=== PATIENT | male | born 1985 | race Caucasian/White ===

== ENCOUNTER 2017-01-23 19:27 | Emergency (ER) | payer SELFPAY ==
[~2017-01-23] VITALS: Ht 170.2 cm; Wt 74.5 kg
[2017-01-23 19:39] VITALS: BP 150/93; PULSE 105; RESP 22; TEMP 99.7; O2SAT 100
[2017-01-23] MEDS ORDERED: LORazepam 2 MG/ML VIAL IV ONE (19:45)
--- NOTE | 2017-01-23 19:56 | PD ---
HPI Chief Complaint: Psychiatric Symptoms Time Seen by Provider: 19:45 Travel History International Travel<30 days: No Contact w/Intl Traveler<30days: No Traveled to known affect area: No History of Present Illness HPI 31-year-old male came to the emergency room with history of using an unknown substance but he thinks it was PCP. When fire department arrived they noticed that he was just staring and nonverbal and had resting nystagmus. His girlfriend was there with him as well and she is brought to the emergency room for the exact same thing. Patient was Landeros acted since he was deemed to be unsafe to himself and others. Upon arrival patient appeared confused eyes staring wide open and asking me if he was going to and that what was going on with him. No history of head injury or any signs of assault. Vital signs were relatively stable except for slight tachycardia. Patient appears to be older than his stated age. He is not a reliable historian at this point. [facility] Past Medical History Narrative Medical List of his past medical, surgical, social and family history is reviewed from the nursing note. Medical History: Denies Significant Hx Diminished Hearing: No Tetanus Vaccination: < 5 Years Influenza Vaccination: No Social History Alcohol Use: Yes Tobacco Use: Yes Substance Use: No Allergies-Medications (Allergen,Severity, Reaction): Coded Allergies: No Known Allergies (Unverified , 05/19/16) Comments No known drug allergies. Reported Meds & Prescriptions Reported Meds & Active Scripts Active No Active Prescriptions or Reported Medications Narrative Medication List of his home medications reviewed from the nursing note. Review of Systems Except as stated in HPI: all other systems reviewed are Neg Physical Exam Narrative GENERAL: Awake, alert, anxious, moderate distress SKIN: Focused skin assessment warm/dry. HEAD: Atraumatic. Normocephalic. EYES: Pupils equal and round. No scleral icterus. No injection or drainage. Non -extinguishable Nystagmus ENT: No nasal bleeding or discharge. Mucous membranes pink and moist. NECK: Trachea midline. No JVD. CARDIOVASCULAR: Regular rate and rhythm. No murmur appreciated. RESPIRATORY: No accessory muscle use. Clear to auscultation. Breath sounds equal bilaterally. GASTROINTESTINAL: Abdomen soft, non-tender, nondistended. Hepatic and splenic margins not palpable. MUSCULOSKELETAL: No obvious deformities. No clubbing. No cyanosis. No edema. NEUROLOGICAL: Awake and confused but answering questions. No obvious cranial nerve deficits. Motor grossly within normal limits. Normal speech. PSYCHIATRIC: Appropriate mood and affect; insight and judgment normal. Data Data Last Documented VS Vital Signs Date Time Temp Pulse Resp B/P Pulse Ox O2 Delivery O2 Flow Rate FiO2 01/24/17 06:00 96.0 79 18 114/80 100 Orders Complete Blood Count With Diff (01/23/17 19:45) Comprehensive Metabolic Panel (01/23/17 19:45) Psych Screen (01/23/17 19:45) Lorazepam Inj (Ativan Inj) (01/23/17 19:45) Drug Screen, Random Urine (01/23/17 19:45) Alcohol (Ethanol) (01/23/17 19:45) Sodium Chlor 0.9% 1000 Ml Inj (Ns 1000 M (01/23/17 20:15) Potassium Chloride Eff (K-Lyte Cl Eff) (01/23/17 21:00) Electrocardiogram (01/23/17 19:47) Diet Regular Basic (01/24/17 Breakfast) Labs Laboratory Tests Test 01/23/17 01/23/17 20:00 20:10 White Blood Count 5.9 TH/MM3 Red Blood Count 5.23 MIL/MM3 Hemoglobin 15.6 GM/DL Hematocrit 45.9 % Mean Corpuscular Volume 87.6 FL Mean Corpuscular Hemoglobin 29.8 PG Mean Corpuscular Hemoglobin 34.0 % Concent Red Cell Distribution Width 12.7 % Platelet Count 250 TH/MM3 Mean Platelet Volume 8.2 FL Neutrophils (%) (Auto) 64.3 % Lymphocytes (%) (Auto) 22.3 % Monocytes (%) (Auto) 8.8 % Eosinophils (%) (Auto) 3.3 % Basophils (%) (Auto) 1.3 % Neutrophils # (Auto) 3.8 TH/MM3 Lymphocytes # (Auto) 1.3 TH/MM3 Monocytes # (Auto) 0.5 TH/MM3 Eosinophils # (Auto) 0.2 TH/MM3 Basophils # (Auto) 0.1 TH/MM3 CBC Comment DIFF FINAL Differential Comment Sodium Level 140 MEQ/L Potassium Level 3.3 MEQ/L Chloride Level 104 MEQ/L Carbon Dioxide Level 26.3 MEQ/L Anion Gap 10 MEQ/L Blood Urea Nitrogen 18 MG/DL Creatinine 1.08 MG/DL Estimat Glomerular Filtration 81 ML/MIN Rate Random Glucose 101 MG/DL Calcium Level 9.1 MG/DL Total Bilirubin 0.7 MG/DL Aspartate Amino Transf 22 U/L (AST/SGOT) Alanine Aminotransferase 27 U/L (ALT/SGPT) Alkaline Phosphatase 69 U/L Total Protein 7.6 GM/DL Albumin 4.4 GM/DL Ethyl Alcohol Level LESS THAN 3 MG/DL Urine Opiates Screen NEG Urine Barbiturates Screen NEG Urine Amphetamines Screen NEG Urine Benzodiazepines Screen NEG Urine Cocaine Screen NEG Urine Cannabinoids Screen POS MDM Medical Decision Making Medical Screen Exam Complete: Yes Emergency Medical Condition: Yes Medical Record Reviewed: Yes Interpretation(s) Twelve-lead EKG was reviewed by me. Normal sinus rhythm, normal axis, nonspecific ST-T wave changes. Heart rate of 99 bpm. Differential Diagnosis Ketamine overdose, PCP overdose, unknown substance abuse Narrative Course 8:01 PM patient was given 1 mg of Ativan. 1 L of IV fluid bolus. Awaiting for the blood test result and urine drug screen. In my opinion patient probably took ketamine since the presentation and the description fits ketamine use. Either way patient will be here till he is seen by psych. Procedures EKG Prior to Arrival: No Scripts No Active Prescriptions or Reported Meds Chester Toledo MD Jan 23, 2017 19:56
[2017-01-23] MEDS ORDERED: SODIUM CHLOR 0.9% 1000 ML INJ 1,000 ML IV ONE (20:15)
[2017-01-23 20:22] VITALS: TEMP 99.5
[2017-01-23 20:25] LABS: AUTOMATED NEUTROPHIL # 3.8 TH/MM3 (1.8-7.7); BASOPHIL # 0.1 TH/MM3 (0-0.2); BASOPHIL % 1.3 % (0.0-2.0); EOSINOPHIL # 0.2 TH/MM3 (0-0.4); EOSINOPHIL % 3.3 % (0.0-4.0); HEMATOCRIT 45.9 % (39.0-51.0); HEMO FLAGS DIFF FINAL; LYMPH % 22.3 % (9.0-44.0); LYMPHOCYTE # 1.3 TH/MM3 (1.0-4.8); MEAN CELL VOLUME 87.6 FL (80.0-100.0); MEAN CORPUSCULAR HEMOGLOBIN 29.8 PG (27.0-34.0); MONO % 8.8 % (0.0-8.0); NEUT % 64.3 % (16.0-70.0); PLATELET COUNT 250 TH/MM3 (150-450); RED BLOOD COUNT 5.23 MIL/MM3 (4.50-5.90); RED CELL DISTRIBUTION WIDTH 12.7 % (11.6-17.2); WHITE BLOOD COUNT 5.9 TH/MM3 (4.0-11.0)
[2017-01-23 20:42] LABS: AMPHETAMINE, URINE NEG (NEG); BARBITURATES, URINE NEG (NEG); COCAINE, URINE NEG (NEG)
[2017-01-23 20:49] LABS: ANION GAP 10 MEQ/L (5-15); AST (GOT) 22 U/L (15-37); BICARBONATE 26.3 MEQ/L (21.0-32.0); BLOOD UREA NITROGEN 18 MG/DL (7-18); CHLORIDE 104 MEQ/L (98-107); GLOMERULAR FILTRATION RATE 81 ML/MIN (>89); POTASSIUM 3.3 MEQ/L (3.5-5.1); SODIUM (NA) 140 MEQ/L (136-145)
[2017-01-23 20:50] LABS: ALT (GPT) 27 U/L (12-78)
[2017-01-23 20:53] LABS: ALKALINE PHOSPHATASE 69 U/L (45-117); TOTAL BILIRUBIN ADULT 0.7 MG/DL (0.2-1.0)
[2017-01-23] MEDS ORDERED: POTASSIUM CHLORIDE 25 MEQ EFFERVESCENT TAB PO ONE (21:00)
[2017-01-23 21:26] VITALS: BP 156/93; PULSE 92; RESP 20; TEMP 99.4; O2SAT 97
[2017-01-24 02:16] VITALS: BP 129/76; PULSE 78; RESP 17; TEMP 98.5; O2SAT 99
[2017-01-24 06:00] VITALS: BP 114/80; PULSE 79; RESP 18; TEMP 96; O2SAT 100
--- NOTE | 2017-01-24 10:01 | PD ---
History of Present Illness Chief Complaint: Psychiatric Symptoms Time Seen by Provider: 09:55 Travel History International Travel<30 Days: No Contact w/Intl Traveler<30days: No Known affected area: No Legal Status Legal Status: Landeros Act Landeros Act Signed By: Niraj Iqbal History of Present Illness: History of Present Illness HPI 31-year-old male with history of substance abuse who presents to ED under a BA initiated by MONIQUE after 911 was called by his girlfriend. The BA reads " Blood pressure high. Unable to answer questions. possible danger to himself and others. Took an unknown narcotic possibly PCP. Unable to make complete full sentences and full paranoia. " Upon arrival patient appeared confused eyes staring wide open and asking if he was going to and that what was going on with him. Patient was monitored in J pod with no behavioral concerns. EMR is reviewed. no previous contact with [facility] psychiatry. Toxicology is positive for cannabinoids. The patient this morning is awake, alert and oriented. he is cooperative. Speech is clear and logical and his thoughts are organized. no indication that he is experiencing any psychosis and no paranoia. the patient at this time is clear form substance. He states " i possibly overdosed on PCP. I smoked some PCP because I have smoked in the past and it helps my knee pain. He does not present any acute psychiatric symptoms and no suicidality. PFSH Past Medical History Medical History: Denies Significant Hx Diminished Hearing: No Tetanus Vaccination: < 5 Years Influenza Vaccination: No Psychiatric History Psychiatric History Hx Psychiatric Treatment: NONE History of Inpatient Treatment: No Guns or firearms in home: No Social History Single male. Lives with his girlfriend. Hx Alcohol Use: Yes Hx Tobacco Use: Yes Hx Substance Use: Yes (PCP) Substance Use Type: Bandar Dust-PCP Hx of Substance Use Treatment: No Family Psychiatric History none Allergies-Medications (Allergen,Severity, Reaction): Coded Allergies: No Known Allergies (Unverified , 05/19/16) Reported Meds & Prescriptions Reported Meds & Active Scripts Active No Active Prescriptions or Reported Medications Review of Systems Except as stated in HPI: all other systems reviewed are Neg Exam Alert: Yes [place]: Person (ox4) Mood: Calm Affect: Appropriate Speech: Clear, Logical Eye Contact: Normal Memory Intact: Comment (no impairmetn) Hallucinations: Other (negative) Delusions: No Suicidal: Ideation (Negative) Homicidal: Ideation (Negative) Insight/Judgement Poor. Poor MDM Medical Decision Making Medical Record Reviewed: Yes Assessment/Plan 31 year old male with history of substance abuse and no psychiatric history who was placed under a BA after he was found to be under the influence of PCP and was not answering questions w fixed stare. The patient was medically cleared and monitored in J pod.He does not present any acute psychiatric symptomatology and does not present any criteria for BA. BA is lifted. he is counseled regarding substance use. Discharge to home. Orders Complete Blood Count With Diff (01/23/17 19:45) Comprehensive Metabolic Panel (01/23/17 19:45) Psych Screen (01/23/17 19:45) Lorazepam Inj (Ativan Inj) (01/23/17 19:45) Drug Screen, Random Urine (01/23/17 19:45) Alcohol (Ethanol) (01/23/17 19:45) Sodium Chlor 0.9% 1000 Ml Inj (Ns 1000 M (01/23/17 20:15) Potassium Chloride Eff (K-Lyte Cl Eff) (01/23/17 21:00) Electrocardiogram (01/23/17 19:47) Diet Regular Basic (01/24/17 Breakfast) Results Vital Signs Date Time Temp Pulse Resp B/P Pulse Ox O2 Delivery O2 Flow Rate FiO2 01/24/17 06:00 96.0 79 18 114/80 100 01/24/17 02:16 98.5 78 17 129/76 99 01/23/17 21:26 99.4 92 20 156/93 97 01/23/17 20:22 99.5 01/23/17 19:39 99.7 105 22 150/93 100 Laboratory Tests Test 01/23/17 01/23/17 20:00 20:10 White Blood Count 5.9 Red Blood Count 5.23 Hemoglobin 15.6 Hematocrit 45.9 Mean Corpuscular Volume 87.6 Mean Corpuscular Hemoglobin 29.8 Mean Corpuscular Hemoglobin 34.0 Concent Red Cell Distribution Width 12.7 Platelet Count 250 Mean Platelet Volume 8.2 Neutrophils (%) (Auto) 64.3 Lymphocytes (%) (Auto) 22.3 Monocytes (%) (Auto) 8.8 Eosinophils (%) (Auto) 3.3 Basophils (%) (Auto) 1.3 Neutrophils # (Auto) 3.8 Lymphocytes # (Auto) 1.3 Monocytes # (Auto) 0.5 Eosinophils # (Auto) 0.2 Basophils # (Auto) 0.1 CBC Comment DIFF FINAL Differential Comment Sodium Level 140 Potassium Level 3.3 Chloride Level 104 Carbon Dioxide Level 26.3 Anion Gap 10 Blood Urea Nitrogen 18 Creatinine 1.08 Estimat Glomerular Filtration 81 Rate Random Glucose 101 Calcium Level 9.1 Total Bilirubin 0.7 Aspartate Amino Transf 22 (AST/SGOT) Alanine Aminotransferase 27 (ALT/SGPT) Alkaline Phosphatase 69 Total Protein 7.6 Albumin 4.4 Ethyl Alcohol Level LESS THAN 3 Urine Opiates Screen NEG Urine Barbiturates Screen NEG Urine Amphetamines Screen NEG Urine Benzodiazepines Screen NEG Urine Cocaine Screen NEG Urine Cannabinoids Screen POS Diagnosis Primary Impression: Substance abuse Psychiatrically Cleared: Yes Med/ Other Pt Specific Info: No Meds Exist/No RX given Prescriptions No Active Prescriptions or Reported Meds Disposition: 01 DISCHARGE HOME Condition: Stable Veronica Grant [employer] REPRESENTATIVE Jan 24, 2017 10:01
--- NOTE | 2017-01-24 11:45 | EKG ---
Date Performed: 01/23/2017 Time Performed: 19:47:09 PTAGE: 31 years EKG: Sinus rhythm NORMAL ECG NO PREVIOUS TRACING DOCTOR: Jay Rosario Interpretating Date/Time 01/24/2017 11:44:06
== END 2017-01-24 11:27 | disposition home or self-care (01) ==
LOC: NEPJ 19:27
DX: F19.10 Other psychoactive substance abuse, uncomplicated (principal); R03.0 Elevated blood-pressure reading, without diagnosis of hypertension; F16.10 Hallucinogen abuse, uncomplicated; F12.10 Cannabis abuse, uncomplicated
CPT/HCPCS: 80053; 80307; 85025; 93005; 96374; 99284; J2060; J7030

== ENCOUNTER 2017-09-30 07:42 | Emergency (ER) | payer SELFPAY ==
[~2017-09-30] VITALS: Ht 170.2 cm; Wt 70.0 kg
[2017-09-30 07:50] VITALS: BP 126/62; PULSE 74; RESP 16; TEMP 97.6; O2SAT 100
--- NOTE | 2017-09-30 07:59 | PD ---
HPI Chief Complaint: Wound/Suture/Staple Re-Check Time Seen by Provider: 07:59 Travel History International Travel<30 days: No Contact w/Intl Traveler<30days: No Traveled to known affect area: No History of Present Illness HPI 32-year-old male presents emergency department with previous laceration to the left anterior knee. This was repaired with rosa maria. This occurred 8 days prior to this visit. He has no real complaints. Wound appears well-healed. He has no known drug allergies. PFSH Past Medical History Psychiatric: No (Pt denies) Social History Alcohol Use: No Tobacco Use: No Substance Use: Yes (PER PD - PCP) Allergies-Medications (Allergen,Severity, Reaction): Coded Allergies: No Known Allergies (Verified Allergy, Unknown, 09/30/17) Reported Meds & Prescriptions Reported Meds & Active Scripts Active Active Prescriptions or Reported Medications Unobtainable Review of Systems Except as stated in HPI: all other systems reviewed are Neg General / Constitutional: No: Fever Eyes: No: Visual changes HENT: No: Headaches Cardiovascular: No: Chest Pain or Discomfort Respiratory: No: Shortness of Breath Gastrointestinal: No: Abdominal Pain Genitourinary: No: Dysuria Musculoskeletal: No: Pain Skin: No Rash Neurologic: No: Weakness Psychiatric: No: Depression Endocrine: No: Polydipsia Hematologic/Lymphatic: No: Easy Bruising Physical Exam Narrative GENERAL: Patient appears in no acute distress. SKIN: Warm and dry. Normal color. Normal turgor. There is a 5 cm well-healed laceration to the left anterior knee, without signs of cellulitis or dehiscence. There are 12 rosa maria present. HEAD: Atraumatic. Normocephalic. EYES: Pupils equal and round. No scleral icterus. No injection or drainage. ENT: No nasal bleeding or discharge. Mucous membranes pink and moist. NECK: Trachea midline. Supple CARDIOVASCULAR: Regular rate and rhythm. RESPIRATORY: No accessory muscle use. MUSCULOSKELETAL: Extremities without clubbing, cyanosis, or edema. No obvious deformities. NEUROLOGICAL: Awake and alert. No obvious cranial nerve deficits. Motor grossly within normal limits. Five out of 5 muscle strength in the arms and legs. Normal speech. PSYCHIATRIC: Appropriate mood and affect; insight and judgment normal. Data Data Last Documented VS Vital Signs Date Time Temp Pulse Resp B/P (MAP) Pulse Ox O2 Delivery O2 Flow Rate FiO2 09/30/17 07:50 97.6 74 16 126/62 (83) 100 MDM Medical Decision Making Medical Screen Exam Complete: Yes Emergency Medical Condition: Yes Medical Record Reviewed: Yes Differential Diagnosis Trauma. Laceration. History of lactic acidosis. Narrative Course Rosa Maria are removed without difficulty. Further medical treatment not felt warranted. Diagnosis Primary Impression: Encounter for staple removal Patient Instructions: General Instructions Additional Instructions: [place] are removed without difficulty. Further medical treatment not felt warranted. Med/Other Pt SpecificInfo: Wound Care Scripts Unable to Obtain Active Prescriptions or Reported Meds Disposition: 01 DISCHARGE HOME Condition: Stable Yuniel Cruz Sep 30, 2017 07:58
== END 2017-09-30 08:33 | disposition home or self-care (01) ==
LOC: NEPD 07:42 → MERGE 07:42 → NEPD 08:33
DX: S81.012D Laceration without foreign body, left knee, subsequent encounter (principal); X58.XXXD Exposure to other specified factors, subsequent encounter; Z48.02 Encounter for removal of sutures
CPT/HCPCS: 99281

== ENCOUNTER 2017-11-16 21:07 | Emergency (ER) | payer SELFPAY ==
[~2017-11-16] VITALS: Ht 175.3 cm; Wt 77.3 kg
[2017-11-16 21:20] VITALS: BP 124/79; PULSE 73; RESP 18; TEMP 98.2; O2SAT 99
--- NOTE | 2017-11-17 00:26 | PD ---
HPI Chief Complaint: Pain: Acute or Chronic Time Seen by Provider: 00:08 Travel History International Travel<30 days: No Contact w/Intl Traveler<30days: No Traveled to known affect area: No History of Present Illness HPI 32-year-old white male presents emergency department with complains of pain and decreased mobility of his right hand. He states that he had an injury 1 month ago when he had a acute psychotic episode and had to be restrained by police. Patient states that he has some sensory loss that has improved but not completely. He also complains of pain throughout the day as he works. 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 He has not followed up with an orthopedist since his initial injury. He had an ultrasound, and an x-ray performed during his initial evaluation which were negative. Symptoms are moderate. Worse with activity. Some relief with rest and elevation. History Past Medical Histgory Narrative Medical Substance abuse Social History Alcohol Use: No Tobacco Use: No Allergies-Medications (Allergen,Severity, Reaction): Coded Allergies: No Known Allergies (Unverified , 05/19/16) Reported Meds & Prescriptions Reported Meds & Active Scripts Active Active Prescriptions or Reported Medications Unobtainable Review of Systems General / Constitutional: No: Fever Eyes: No: Visual changes HENT: No: Headaches Cardiovascular: No: Chest Pain or Discomfort Respiratory: No: Shortness of Breath Gastrointestinal: No: Abdominal Pain Genitourinary: No: Dysuria Musculoskeletal: Positive: Arthralgias, Limited ROM, Weakness, Pain Skin: No Rash Neurologic: Positive: Paresthesia, No: Weakness Psychiatric: No: Depression Endocrine: No: Polydipsia Hematologic/Lymphatic: No: Easy Bruising Physical Exam Narrative GENERAL: This is a well-nourished, well-developed patient, in no apparent distress. SKIN: No rashes, ecchymoses or lesions. Warm and dry. HEAD: Atraumatic. Normocephalic. EYES: PERRL, EOMI, no discharge or injection. No scleral icterus. EARS: Clear NOSE: Nasal turbinates appear normal. THROAT: Mucosa pink and moist. Airway patent. NECK: Trachea midline. supple, moves head freely. LUNGS: Clear to auscultation. CV: Regular in rhythm. ABDOMEN: Soft nontender. EXT: No clubbing cyanosis or edema. Examination of the right hand reveals no obvious edema. He complains of tenderness along the dorsal distal radial aspect of his forearm into his hand. He has complained of pain over his first, second and third metacarpals. He reports decreased manager infusion. He has decreased hypoesthesia over the thumb, index and middle finger. He has intact gross sensation. He is able to extend fully but has slightly decreased flexion. There is no bony tenderness. There is no edema. The skin is intact. No pain in the elbow, or shoulder. Data Data Last Documented VS Vital Signs Date Time Temp Pulse Resp B/P (MAP) Pulse Ox O2 Delivery O2 Flow Rate FiO2 11/16/17 21:20 98.2 73 18 124/79 (94) 99 MDM Medical Screen Exam Complete: Yes Emergency Medical Condition: No Differential Diagnosis MDM: High Differential diagnoses: Fracture, sprain, strain, dislocation, contusion, neurovascular injury, neuropraxis Narrative Course I reviewed the patient's medical record. He had an ultrasound and x-ray which were negative on his initial evaluation. At this time he has declined a wrist splint and medication for discomfort. I explained to him that he would need further evaluation by an orthopedist or hand surgeon. A medical screening exam was performed: At the time of evaluation the presenting medical condition was determined not to be of an emergent nature. The patient was given the option of receiving additional care, but declined. Patient was given options for additional community resources from which to obtain care. The Patient Has Been advised to seek medical attention for their presenting complaint. The patient has been advised to return to the ER at any time if an emergent condition develops. The patient has opted to leave. He does not want to stay for further treatment. He has agreed to follow-up with outpatient orthopedic. Primary Impression: Encounter for medical screening examination Scripts Unable to Obtain Active Prescriptions or Reported Meds Condition: Rigo Mehta Nov 17, 2017 00:26
== END 2017-11-17 00:34 | disposition left against medical advice (07) ==
LOC: NEPD 21:07
DX: M79.641 Pain in right hand (principal)
CPT/HCPCS: 99281